=== PATIENT | male | born 1935 | race Caucasian/White ===

== ENCOUNTER 2016-03-03 08:57 | Outpatient (CLI) | payer MEDICARE, OTHER ==
[2016-03-03 09:44] LABS: eGFR (African) > 60; eGFR (Non-African) > 60
== END 2016-03-03 09:00 ==
LOC: LAB 08:57
PROVIDERS: ATTEND Family Medicine
DX: Z51.81 Encounter for therapeutic drug level monitoring (principal); E78.5 Hyperlipidemia, unspecified; N40.0 Benign prostatic hyperplasia without lower urinary tract symptoms; Z79.899 Other long term (current) drug therapy
CPT/HCPCS: 36415; 80053; 80061; 84153

== ENCOUNTER 2016-05-23 12:18 | Outpatient (CLI) | payer MEDICARE, OTHER ==
--- NOTE | 2016-05-23 14:02 | Diagnostic Imaging Report ---
KAROLYN BURCIAGA [facility] [id number] [facility], [facility] [address] [address] Report Submission Date: May 23, 2016 1:42:27 PM CDT Patient Study Name: MARLENE WINN Date: May 23, 2016 12:24:37 PM CDT Modality Type: CR Gender: M Description: CHEST : 35 Institution: [facility] Physician: KAROLYN BURCIAGA Chest two views HISTORY: Cough and difficulty breathing. FINDINGS: The lungs are hyperinflated. Mild lingular infiltrate or atelectasis is present , of uncertain chronicity. Heart size is normal. There is no pleural effusion. The right lung is clear. IMPRESSION: Chronic obstructive pulmonary disease and lingular infiltrate or atelectasis of uncertain chronicity. Electronically signed on May 23, 2016 1:42:27 PM CDT by: Jesus DENNY
== END 2016-05-23 12:20 ==
LOC: RAD 12:18
PROVIDERS: ATTEND Family Medicine
DX: J06.9 Acute upper respiratory infection, unspecified (principal)
CPT/HCPCS: 71020

== ENCOUNTER 2016-09-14 07:27 | Outpatient (CLI) | payer MEDICARE, OTHER | END 2016-09-14 07:30 | LOC: LAB 07:27 | PROVIDERS: ATTEND Family Medicine | DX: E78.5 Hyperlipidemia, unspecified (principal) | CPT/HCPCS: 36415; 80061 ==

== ENCOUNTER 2017-03-20 07:56 | Outpatient (CLI) | payer MEDICARE, OTHER ==
[2017-03-20 08:18] LABS: BASOPHILS % 1.3 (0.0-1.5); EOSINOPHILS % 9.5 % (0.0-6.8); MEAN CORPUSCULAR HEMOGLOBIN 28.5 pg (28.0-34.0); MEAN CORPUSCULAR VOLUME 84.7 fl (80.0-100.0); MONOCYTES % 6.5 % (0.0-11.0); NEUTROPHILS # 3.8 # k/uL (1.4-7.7)
[2017-03-20 11:40] LABS: eGFR (African) > 60; eGFR (Non-African) > 60
== END 2017-03-20 07:57 ==
LOC: LAB 07:56
PROVIDERS: ATTEND Family Medicine
DX: N40.0 Benign prostatic hyperplasia without lower urinary tract symptoms (principal); I10 Essential (primary) hypertension
CPT/HCPCS: 36415; 80053; 84153; 85025; G0103

== ENCOUNTER 2017-11-01 10:42 | Outpatient (CLI) | payer MEDICARE, OTHER ==
[2017-11-01 11:13] LABS: BASOPHILS % 0.7 (0.0-1.5); EOSINOPHILS % 8.3 % (0.0-6.8); MEAN CORPUSCULAR HEMOGLOBIN 28.3 pg (28.0-34.0); MEAN CORPUSCULAR VOLUME 84.2 fl (80.0-100.0); MONOCYTES % 8.2 % (0.0-11.0); NEUTROPHILS # 2.6 # k/uL (1.4-7.7)
[2017-11-01 11:41] LABS: eGFR (Non-African) > 60
== END 2017-11-01 10:43 ==
LOC: LAB 10:42
PROVIDERS: ATTEND Family Medicine
DX: I10 Essential (primary) hypertension (principal); E78.5 Hyperlipidemia, unspecified
CPT/HCPCS: 36415; 80053; 80061; 85025

== ENCOUNTER 2018-05-15 08:05 | Outpatient (CLI) | payer MEDICARE, OTHER | END 2018-05-15 08:07 | LOC: LAB 08:05 | PROVIDERS: ATTEND Family Medicine | DX: E78.5 Hyperlipidemia, unspecified (principal) | CPT/HCPCS: 36415; 80061 ==

== ENCOUNTER 2018-11-12 08:13 | Outpatient (CLI) | payer MEDICARE, OTHER | END 2018-11-12 08:15 | LOC: LAB 08:13 | PROVIDERS: ATTEND Family Medicine | DX: E78.5 Hyperlipidemia, unspecified (principal) | CPT/HCPCS: 36415; 80061 ==